=== PATIENT | male | born 1975 | race Caucasian/White ===

== ENCOUNTER → 2019-02-08 | Outpatient (CLI) | payer OTHER ==
--- NOTE | 2019-02-08 18:04 | RADIOLOGY REPORT (SQ) ---
EXAM DESCRIPTION: U/S THYROID/SFT TISS HD NECK COMPLETED DATE/TIME: 02/08/2019 2:17 pm REASON FOR STUDY: (E07.89)OTHER SPECIFIED DISORDERS OF THYROID E07.89 OTHER SPECIFIED DISORDERS OF THYROID S09.92XS UNSPECIFIED INJURY OF NOSE, SEQUELA COMPARISON: None. TECHNIQUE: Dynamic and static weiss-scale images acquired of the thyroid gland. Selected additional c olor/power Doppler images recorded. All images stored to PACS. LIMITATIONS: None. FINDINGS: RIGHT LOBE: 2.0 x 2.4 x 5.4 cm. Slightly heterogenous echotexture. Small circumscribed 2 x 5 mm hypoechoic nodule. LEFT LOBE: 2.2 x 2.2 x 5.5 cm. Slightly heterogenous echotexture. No cystic or solid masses. ISTHMUS: 4.0 mm. Slightly heterogenous echotexture. No cystic or solid masses. OTHER: No other significant finding. IMPRESSION: SLIGHTLY HETEROGENOUS ECHOTEXTURE THROUGHOUT THE THYROID. SMALL 2 X 5 MM HYPOECHOIC NOD ULE IN THE RIGHT LOBE. TECHNICAL DOCUMENTATION: JOB ID: [id number] [employer]- All Rights Reserved Reading location - IP/workstation name: [email or web address]
--- NOTE | 2019-02-11 09:12 | RADIOLOGY REPORT (SQ) ---
EXAM DESCRIPTION: CT SINUSES FOR ENT COMPLETED DATE/TIME: 02/08/2019 1:55 pm REASON FOR STUDY: (S09.92XS)UNSPECIFIED INJURY OF NOSE, SEQUELA E07.89 OTHER SPECIFIED DISORDERS OF THYROID S09.92XS UNSPECIFIED INJURY OF NOSE, SEQUELA COMPARISON: None. TECHNIQUE: Noncontrast scanning through the paranasal sinuses using bone algorithm. Reconstructed MPR images reviewed. All images stored on PACS. All CT scanners at this facility use dose modulation, iterative reconstruction, and/or weight based d osing when appropriate to reduce radiation dose to as low as reasonably achievable (ALARA). [facility]: Dose Right [facility]: CareDose [facility]: Dose Right [facility]: Teradose 4D [facility]: [employer] RADIATION DOSE: 48mGy. LIMITATIONS: None. FINDINGS: Right sinuses and drainage pathways: Post-surgical changes: None. Frontal sinus: Normal. Frontoethmoidal Recess: Normal. Anterior Ethmoid Sinuses: Normal. Posterior Ethmoid Sinuses: Normal. Sphenoid Sinus: Normal. Sphenoethmoidal Recess: Normal. Maxillary Sinus: Mucous membrane thickening. Mucus or serous retention cyst along the right lateral floor maxillary sinus. Ostiomeatal Complex: Patent, mucous membrane thickening. Left Sinuses and Drainage Pathways: Post-Surgical Changes: None. Frontal Sinus: Normal. Frontoethmoidal Recess: Normal. Anterior Ethmoid Sinuses: Normal. Posterior Ethmoid Sinuses: Normal. Sphenoid Sinus: Normal. Sphenoethmoidal Recess: Normal. Maxillary Sinus: Normal. Ostiomeatal Complex: Normal. Right Olfactory Fossa: No polyps. Left Olfactory Fossa: No polyps. Middle Turbinate Angela Bullosa: No Paradoxical Middle Turbinate: No. Atelectatic Uncinate Process: On the right. Frontal Gm Cell Type I: Bilateral Frontal Gm Cell Type II: No. Interfrontal Sinus Septal Cell: None. Supra-Orbital Ethmoid: None. Frontal Bullar Cell: None. Suprabullar Bullar Cell: None. Sphenoethmoidal ([place]) Cell: None. Pneumatization of the Anterior Clinoid Processes: No Hypoplastic Maxillary Sinus: None. Osteoneogenesis: None. Bone Dehiscence:None. Nasal Cavity: Normal. Nasal Septum: Midline Anatomic Variants: Right Vidian Canal: Normal. Left Vidian Canal: Normal. IMPRESSION: Mucous membrane thickening right maxillary sinus and maxillary outlet. TECHNICAL DOCUMENTATION: JOB ID: [id number] Quality ID # [id number]: Final reports with documentation of one or more dose reduction techniques (e.g., Au tomated exposure control, adjustment of the mA and/or kV according to patient size, use of iterative reconstruction technique) 2010 [employer]- All Rights Reserved Reading location - IP/workstation name: [email or web address]
== END ==
LOC: RAD 13:48
PROVIDERS: ATTEND Otolaryngology
DX: S09.92XS Unspecified injury of nose, sequela (principal); X58.XXXS Exposure to other specified factors, sequela; E04.1 Nontoxic single thyroid nodule
CPT/HCPCS: 70486; 76536

== ENCOUNTER → 2019-02-22 | Outpatient (CLI) | payer OTHER ==
--- NOTE | 2019-02-22 16:26 | RADIOLOGY REPORT (SQ) ---
EXAM DESCRIPTION: MRI LUMBAR SPINE WITHOUT COMPLETED DATE/TIME: 02/22/2019 3:46 pm REASON FOR STUDY: PAIN COMPARISON: None. TECHNIQUE: Sagittal and Axial imaging includes T1, T2, STIR and gradient echo sequences. Coronal T2/ HASTE imaging. LIMITATIONS: None. FINDINGS: VISUALIZED UPPER ABDOMEN: Limited evaluation. No acute or suspicious findings suggested. SEGMENTATION: No transitional anatomy. The lowest well-developed disc space is labeled L5-S1. ALIGNMENT: Anatomic. VERTEBRAE: Intact. BONE MARROW: Normal. No marrow replacement or reactive changes. DISC SIGNAL: Normal. No significant abnormal signal or loss of height. POSTERIOR ELEMENTS: Generally intact. No pars defect evident. Mild L5-S1 facet arthropathy. HARDWARE: None in the spine. CORD AND CONUS: Normal in size and signal intensity. Conus at the appropriate level. SOFT TISSUES: No aortic aneurysm seen. No bulky retroperitoneal adenopathy or mass. No paraspinal mas s or fluid. L1-L2: No significant spinal stenosis or exit foraminal stenosis. L2-L3: No significant spinal stenosis or exit foraminal stenosis. L3-L4: Mild circumferential disc bulge without significant spinal canal stenosis. Mild left neural f oraminal narrowing secondary to disc bulge. L4-L5: Mild circumferential disc bulge without significant spinal canal stenosis. Mild bilateral rachna ral foraminal narrowing secondary to disc bulge. L5-S1: No significant spinal stenosis or exit foraminal stenosis. LOWER THORACIC: Incompletely imaged. No stenosis seen. SACRUM: Visualized upper sacrum intact. OTHER: No other significant findings. IMPRESSION: 1. No evidence of acute bony abnormality of the lumbar spine. 2. Mild degenerative changes without significant spinal canal stenosis or neural foraminal narrowing . 3. Mild facet arthropathy at L5-S1. . TECHNICAL DOCUMENTATION: JOB ID: [id number]- All Rights Reserved Reading location - IP/workstation name: [email or web address]
== END ==
LOC: RAD 15:05
PROVIDERS: ATTEND Nurse Practitioner Family
DX: M51.36 Other intervertebral disc degeneration, lumbar region (principal); M48.061 Spinal stenosis, lumbar region without neurogenic claudication; M47.897 Other spondylosis, lumbosacral region
CPT/HCPCS: 72148